=== PATIENT | female | born 1990 | race Two or more races ===

== ENCOUNTER 2017-01-03 10:00 | Outpatient (CLI) | payer OTHER ==
[2017-01-03 11:02] LABS: BILIRUBIN,URINE NEGATIVE (NEGATIVE)
[2017-01-03 11:05] LABS: UA CHARGE (STRIP ONLY) YES; UR CULTURE IF IND NOT INDICATED
[2017-01-03 11:47] VITALS: BP 114/71
--- NOTE | 2017-01-03 13:29 | Ultrasound Preliminary Report ---
Exam: US OB Limited IMPRESSION: 1. Single live intrauterine gestation in cephalic presentation with normal amniotic fluid volume. Est imated weight 2391 g 2. Cervix closed measuring 3.8 cm in length. Posterior placenta with no previa. 3. Examination otherwise as above. [facility] SITE ID: [id number]
--- NOTE | 2017-01-03 13:32 | Ultrasound Report ---
EXAM: THIRD TRIMESTER OBSTETRIC ULTRASOUND EXAM DATE: 01/03/2017 12:24 PM. CLINICAL HISTORY: Cervical length. COMPARISON: None. TECHNIQUE: Real-time scanning performed with static images. FINDINGS: Fetus: Single live intrauterine gestation. Presentation: Cephalic. Heart Rate: 132 beats per minute. Placenta: Posterior position. No placenta previa or abruption. Amniotic Fluid Index (DANNIELLE): 14.7 cm (normal 8-25). Biometry: Bi-parietal diameter (BPD): 8.5 cm = 34 weeks 3 days. Head circumference (HC): 32.9 cm = 37 weeks 2 days. Abdominal circumference (AC): 30.5 cm = 34 weeks 3 days. Femur length (FL): 6.4 cm = 32 weeks 6 days. Dates: Composite gestational age (this exam): 34 weeks 5 days (EDC 02/09/2017 ). Estimated weight: 2391 gm. Approximately 50th percentile for gestational age 33 weeks 3 days ba sed on dates submitted by patient. Anatomic Survey: No hydrocephalus. Anatomic survey not performed at this time. Maternal Structures: Cervix: Long and closed measuring 3.8 cm. Uterus/adnexa: Unremarkable. Kidneys: No hydronephrosis. Free fluid: None. IMPRESSION: 1. Single live intrauterine gestation in cephalic presentation with normal amniotic fluid volume. Est imated weight 2391 g 2. Cervix closed measuring 3.8 cm in length. Posterior placenta with no previa. 3. Examination otherwise as above. [facility] Referring Provider Line: [phone] SITE ID: [id number]
--- NOTE | 2017-01-03 18:13 | PROVIDER PROGRESS NOTE ---
Subjective - Prog Note Date Prog Note Date: 01/03/17 - Subjective Subjective: Patient report 3 H regular q 5min mild contractions wo suspicion of ROM. No fever, UTI sx or pelvic pressure. Objective - Vital Signs/Intake & Output Vital Signs: Vital Signs x48h Temp Pulse Resp BP Pulse Ox 01/03/17 11:34 78 16 114/71 98 01/03/17 10:20 98.6 F 80 16 129/76 99 - Lab Results Other Labs: Lab Results x24hrs 01/03/17 Range/Units 10:05 Urine Color YELLOW Urine Clarity CLEAR (CLEAR) Urine pH 7.0 (5.0-7.5) PH Ur Specific [place] <=1.005 (1.002-1.030) Urine Protein NEGATIVE (NEGATIVE) mg/dL Urine Glucose (UA) NEGATIVE (NEGATIVE) mg/dL Urine Ketones NEGATIVE (NEGATIVE) mg/dL Urine Occult Blood NEGATIVE (NEGATIVE) Urine Nitrite NEGATIVE (NEGATIVE) Urine Bilirubin NEGATIVE (NEGATIVE) Urine Urobilinogen 0.2 (NORMAL) (NORMAL) E.U./dL Ur Leukocyte Esterase NEGATIVE (NEGATIVE) Ur Microscopic Review NOT INDICATED Urine Culture Comments NOT INDICATED Physical Exam - Physical Exam General: positive: No acute distress, Alert HEENT: positive: Moist mucous membranes, Dentition normal Neck: positive: Supple w/out meningeal sx Abdomen: positive: Normal Bowel sounds Female : positive: Enlarged uterus (Accontactile, FH slightly larger than dates) Extremities: positive: No pedal edema Skin: positive: Warm and dry Neurologic: positive: Normal Speech Assessment/Plan - Assessment/Plan Assessment: Not in PTL and possibility of PTD remote w cervical length of 3.8 cm. FH & EFW slightly ahead of dates. Maybe GDM & need [facility] 3H GTT Plan: If 3H GTT not available this week we should repeat it. Appt on Jul
== END 2017-01-03 12:40 | disposition home or self-care (01) ==
LOC: WFO 10:00 → FBP 10:02 → WFO 12:30
PROVIDERS: ATTEND Obstetrics & Gynecology
DX: O47.03 False labor before 37 completed weeks of gestation, third trimester (principal); Z3A.33 33 weeks gestation of pregnancy
CPT/HCPCS: 76815; 81001; 81003; 87086; 99213

== ENCOUNTER 2017-01-24 08:00 | Outpatient (CLI) | payer OTHER | END 2017-01-24 08:01 | disposition home or self-care (01) | LOC: LAB.R 08:00 | PROVIDERS: ATTEND Registered Nurse | DX: Z36 Encounter for antenatal screening of mother (principal) | CPT/HCPCS: 87081 ==

== ENCOUNTER 2017-02-11 14:10 | Inpatient (IN) | payer OTHER ==
[2017-02-11 14:55] LABS: BASOPHILS # (AUTO) 0.1 10^3/uL (0.0-0.1); BASOPHILS % (AUTO) 0.7 %; EOSINOPHILS % (AUTO) 0.4 %; HCT - HEMATOCRIT 37.6 % (37.0-47.0); HGB - HEMOGLOBIN 12.3 g/dL (12.0-16.0); LYMPHOCYTES # (AUTO) 2.2 10^3/uL (1.5-3.5); MEAN CORPUSCULAR HGB CONC 32.8 g/dL (32.0-36.0); MEAN CORPUSCULAR VOLUME 88.4 fL (81.0-99.0); MEAN PLATELET VOLUME 8.8 fL (7.9-10.8); MONOCYTES # (AUTO) 0.9 10^3/uL (0.0-1.0); MONOCYTES % (AUTO) 7.9 %; NEUTROPHILS # (AUTO) 8.2 10^3/uL (1.5-6.6); RED BLOOD COUNT 4.26 10^6/uL (4.20-5.40); UNCORRECTED WHITE BLOOD COUNT 11.4 x10^3/uL; WHITE BLOOD COUNT 11.4 x10^3/uL (4.8-10.8)
[2017-02-11 17:22] LABS: BILIRUBIN,URINE NEGATIVE (NEGATIVE)
[2017-02-11 17:23] LABS: UA CHARGE (STRIP ONLY) YES; UR CULTURE IF IND NOT INDICATED
[2017-02-11] MEDS ORDERED: ONDANSETRON 4 MG/2 ML VIAL IVP PRN (18:34)
[2017-02-11] MEDS ORDERED: fentaNYL 100 MCG/2 ML VIAL IVP PRN (18:34)
[2017-02-11] MEDS ORDERED: SODIUM CHLORIDE FLUSH 0.9% 10 ML SYRINGE IVP PRN (18:34)
[2017-02-11] MEDS ORDERED: DINOPROSTONE 10 MG SUPP VG ONE (18:34)
[2017-02-11] MEDS ORDERED: OXYTOCIN/SODIUM CHLORIDE 250 ML IV ONE (18:34)
--- NOTE | 2017-02-11 18:44 | HISTORY & PHYSICAL EXAMINATION ---
Admit History - Instructions [place]/Slash: -Left hand click circles element as positive or present. -Right hand click slashes element as negative or not present. - Visit Reason Visit Reason: Other (gestational HTN w/ BPs consistently 140s/90s, no s/sx pre- eclampsia, elevated BP w/o significant proteinuria) - : 1 Parity: 0 Premature: 0 Ectopic: 0 : 0 Care: positive: [facility] (beginning @ 29w5d), [facility] Complications This : positive: induced HTN Smoking Status: Never smoker - Mother's Labs Mother's Blood Type: positive: B Mother's RH: positive: Positive GBS: positive: Group B Step Negative Rubella Status: positive: Immune (Medical History: unremarkable Surgical History : None Allergies: NKDA Medications: PNV to john [employer] DV, no tob/ ETOH/drugs. Active [employer].) Meds/Allgy - Home Medications Home Medications: Ambulatory Orders Medication Instructions Recorded Confirmed Pnv No.121/Iron/Folic Acid 1 each PO DAILY 02/11/17 02/11/17 [ Multivitamin Tablet] - Allergies Allergies/Adverse Reactions: Allergies Allergy/AdvReac Type Severity Reaction Status Date / Time No Known Drug Allergies Allergy Verified 02/11/17 18:48 Physical - Abdominal Exam Vital Signs: Temp Pulse Resp BP Pulse Ox 80 16 128/75 98 02/11/17 14:40 02/11/17 14:40 02/11/17 17:12 02/11/17 14:40 Contraction Frequency (min/apart): Occasional Contraction Intensity: positive: Mild Uterine Resting Tone: positive: Soft - Monitoring Heart Rate Baseline: 135 Strip Review: positive: Category I - Presentation Presentation: positive: Vertex - Vaginal Exam Membranes: positive: Membranes intact Dilation (in cm): 1 Effacement (%): 70 Station: positive: -1 Cervical Position: positive: Posterior (soft; bishops score: 7) - Speculum Exam Speculum Exam Performed: positive: No - Other Notes Labor Progress Note/Additional Text: is a 26 y/o @ 39 weeks' EGA by LMP, consistent w/ 1st trimester US. Her care has been remarkable for social stress r/t 's absence secondary to deployment. She has had no notable laboratory values and has had no concerning findings throughout the course of her care until she was seen in clinic today for concerns r/t possible labor. She was incidentally found to have elevated BP in clinic, with max finding of 144/92. She was sent to [facility] for evaluation of elevated BP & her Bp remained persistently 140s/90s. PET labs WNL except uric acid 9. No proteinuria on dip, TP/Cr pending. No neurologic findings. She is otoniel occasionally & has a Gonsalves's score of 7. She was hoping for minimal intervention & desires an unmedicated delivery. She is Rh +, rubella immune, GBS negative. ROS: GEN: Denies fever, +difficulty sleeping HEENT: Denies change in vision, POWER CHEST: Denies SOB/dyspnea HEART: denies CP, palpitations GI: denies n/v/d, some heartburn, relieved w/ ranitidine, no RUQ/epigastric pain : +urinary frequency & urgency, no dysuria OB: +FM, occ UC, not particularly painful, +mucoid bloody vaginal d/c, no LOF, no ligia bleeding, +FM MS: FROM t/o, +lumbar pain, no shoulder pain Neuro: No changes in vision, no dizziness, no weakness/numbness/tingling Psych: Feels anxious Skin: no pruritus, no lesions O: GEN: AAOx3, NAD WA gravid female, affect somewhat anxious, intermittently tearful HEENT: grossly normocephalic, atraumatic CHEST: Lungs b/l CTA t/o HEART: RRR nls1s2, no murmur ABD: Gravid, NT, + movement, lie longitudinal, presentation cephalic , EFW 7.5-8# EFM: BL 135bpm, + accels, no decels, mod variability TOCO: intermittent occasional uterine contractions SVE: /-1 soft, posterior, IBOW EXTREMITIES: FROM t/o, NT, trace b/l pedal edema SKIN: C/D/I, striae gravidarum, no other lesions NEURO: No focal deficit, LE DTRs +2, no clonus PSYCH: Intermittently tearful, anxious A: 26 y/o @ 39 weeks' gestation, GHTN w/o s/sx PET, GBS negative, FHTs cat I, Bishops score: 7, adequate pain control w/o analgesia/anesthesia, good social support from partner & family Plan for Labor - Plan For Labor Plan for Labor: P: 1. reviewed management options & rationale for IOL @ 39 weeks w/ persistently elevated BP, even in absence of evidence of pre-eclampsia; pt & partner elect preinduction cervical ripening this evening w/ IOL to commence tomorrow, reviewed all options for preinduction cervical ripening & pt elects dinoprostone insert overnight, PARQ held 2. Admit to obs for preinduction cervical ripening w/ anticipation of transfer to inpt status w/ onset of active labor or ROM 3. Reviewed physiology of labor process, induction, expectations, risks/benefits 4. Ongoing careful monitoring of BP w/ initiation of antihypertensive therapy for severe-range BPs 5. Reviewed PET warning s/sx & pathophysiology of PET as well as unpredictable nature of the disease, repeat labs in am 6. Regular diet 7. Sleep aid PRN overnight 8. Plan to place dinoprostone insert & reassess x12 hours, earlier PRN 9. Reviewed plan of care w/ pt, partner & RN @ bedside; all in agreement, without concerns. Reviewed clinical scenario w/ Dr. Lani DO, who concurs w/ the management plan 10. Will make efforts to preserve 's desires for limited intervention as medically feasible--reviewed w/ pt & her partner
[2017-02-11 18:54] LABS: BASOPHILS # (AUTO) 0.1 10^3/uL (0.0-0.1); BASOPHILS % (AUTO) 0.8 %; EOSINOPHILS # (AUTO) 0.1 10^3/uL (0.0-0.7); EOSINOPHILS % (AUTO) 0.5 %; HCT - HEMATOCRIT 38.6 % (37.0-47.0); HGB - HEMOGLOBIN 13.1 g/dL (12.0-16.0); LYMPHOCYTES # (AUTO) 3.1 10^3/uL (1.5-3.5); LYMPHOCYTES % (AUTO) 24.9 %; MEAN CORPUSCULAR HEMOGLOBIN 30.3 pg (27.0-31.0); MEAN CORPUSCULAR VOLUME 88.9 fL (81.0-99.0); MEAN PLATELET VOLUME 8.8 fL (7.9-10.8); MONOCYTES # (AUTO) 1.1 10^3/uL (0.0-1.0); MONOCYTES % (AUTO) 8.8 %; NEUTROPHILS # (AUTO) 8.2 10^3/uL (1.5-6.6); RED BLOOD COUNT 4.34 10^6/uL (4.20-5.40); UNCORRECTED WHITE BLOOD COUNT 12.6 x10^3/uL; WHITE BLOOD COUNT 12.6 x10^3/uL (4.8-10.8)
[2017-02-11] MEDS: SODIUM CHLORIDE FLUSH 0.9% 10 ML SYRINGE IVP SCH (22:00)
[2017-02-11] MEDS ORDERED: FLUCONAZOLE 100 MG TABLET PO STA (22:42)
[2017-02-11] MEDS ORDERED: hydrOXYzine PAMOATE 25 MG CAPSULE PO PRN (22:43)
[2017-02-12] MEDS: SODIUM CHLORIDE FLUSH 0.9% 10 ML SYRINGE IVP SCH ×2 (07:25→21:27)
[2017-02-12] MEDS ORDERED: MAGNESIUM HYDROXIDE 2,400 MG/30 ML UDC PO PRN (11:21)
--- NOTE | 2017-02-12 11:24 | PROVIDER PROGRESS NOTE ---
Labor Progress Note - Uterine Monitoring Uterine Monitoring Mode: positive: External toco Contraction Frequency (min/apart): 5 Contraction Intensity: positive: Mild Uterine Resting Tone: positive: Soft - Monitoring Monitor Mode: positive: External ultrasound Heart Rate Baseline: 140 Heart Rate Variability: positive: Moderate (6-25 bmp) Accelerations: positive: Present, 15x15 Decelerations: positive: None Strip Review: positive: Category I - Vaginal Exam Dilation (in cm): 2 Effacement (%): 80 Station: -1 Cervical Position: Midposition - Labor Progress Note Labor Progress Note/Additional Text: S: was able to sleep some last night. She is very nervous about the next phase of her induction secondary to her discomfort w/ SVE. Her partner, Luis F , is present at the bedside & is very involved & supportive. Her mother is resting in the room. She had been hoping to have an unmedicated delivery, but she is having second thoughts because she has fear regarding the extent of the pain. She is noticing tightening w/ her contractions now & has occasional cramping but she does not have any profound discomfort. O: VS: T: 97.9, HR 80 RR17 BP138/79 EFM BL 140bpm, +accels, no decels, mod variability TOCO: UCs q5 min x 70-90 seconds, palpably mild SVE: 2/80/-1, soft, midposition, Gonsalves's 9; large amount of stool palpable in rectum--pt reports no BM x3 days A: 26 y/o @ 39w1d w/ new-onset gestational HTN, no s/sx pre-eclampsia Normotensive @ present w/o severe-range BPs GBS negative, IBOW Adequate pain control w/o analgesia/anesthesia Some cervical change s/p cervical ripening x12 hours w/ PGE2 insert P: 1. Reviewed management options, to include further cervical ripening w/ PGE1 buccally vs. initiation of Pitocin infusion, reviewed risks/benefits, pt elects a buccal dose of misoprostol x1 @ this time w/ re-evaluation x4 hours, earlier PRN 2. Reviewed constipation & large amount of stool in rectum as well as resultant discomfort; recommend Milk of Magnesia @ this time to facilitate BM 3. Ongoing CEFM & close BP monitoring w/ initiation of antihypertensive therapy for severe-range BPs 4. Reviewed optimal maternal positioning in early 1st stage labor; reviewed labor support options; reviewed pain management techniques & options @ length 5. Reassess cervical status x4 hours s/p misoprostol administration, earlier PRN 6. Reviewed plan of care w/ pt, partner & RN @ bedside; all in agreement, without concerns.
[2017-02-12] MEDS: miSOPROStol 100 MCG TABLET BC SCH ×2 (11:40→21:47)
[2017-02-12] MEDS: ACETAMINOPHEN 325 MG TABLET PO PRN (11:40)
--- NOTE | 2017-02-12 16:21 | PROVIDER PROGRESS NOTE ---
Labor Progress Note - Uterine Monitoring Contraction Frequency (min/apart): 1-6 Contraction Intensity: positive: Mild Uterine Resting Tone: positive: Soft - Monitoring Monitor Mode: positive: External ultrasound Heart Rate Baseline: 145 Heart Rate Variability: positive: Moderate (6-25 bmp) Accelerations: positive: Present, 15x15 Decelerations: positive: None Strip Review: positive: Category I - Vaginal Exam Dilation (in cm): 3 Effacement (%): 80 Station: -1 Cervical Position: Anterior (soft) - Labor Progress Note Labor Progress Note/Additional Text: S: reports increased intensity of uterine contractions, considerable rectal pressure & cramping w/ the contractions as well as between. She has noticed some increased bloody show when she has used the restroom. She has been ambulating in the hallway & utilizing her ball. She was able to eat lunch & has been walking in the hallways with Bruce, who is very involved & supportive. O: VS: T 97.9, HR 81, RR 17 BP 125/84 EFM: BL 145bpm, +accels, no decels, mod variability TOCO: UCs q1-6 min x60sec, palp mild SVE: 3/80/-1/anterior/soft, Gonsalves's score = 11; BBOW w/ uterine contractions; significant palpable stool in pt's rectum A: 26 y/o @ 39w1d, IOL for gestational HTN w/o s/sx PET Normotensive @ present & no severe-range BPs S/P effective prostaglandin cervical ripening w/ overnight PGE2 & 1 dose PGE1 GBS negative w/ IBOW Adequate pain control w/o analgesia/anesthesia Constipation, not yet responsive to single dose oral MOM P: 1. Begin Pitocin infusion & titrate per protocol to adequate contraction pattern per tocometry 2. Fleet's mineral oil enema x1 3. Reviewed optimal maternal positioning & activity in early 1st stage labor 4. Reviewed labor physiology & anticipatory guidance for progress 5. Reviewed pain management options, analgesia/anesthesia PRN per pt request 6. Ongoing careful monitoring of BP w/ initiation of antihypertensive therapy for severe-range BPs 7. Reassess cervical status x4 hours, earlier PRN 8. Reviewed plan of care w/ pt, partner & RN @ bedside; all in agreement, without concerns.
[2017-02-12] MEDS ORDERED: OXYTOCIN/SODIUM CHLORIDE 250 ML IV SCH ×2 (17:00)
[2017-02-12] MEDS ORDERED: MINERAL OIL ENEMA 133 ML BOTTLE RC ONE (17:00)
--- NOTE | 2017-02-13 00:28 | PROVIDER PROGRESS NOTE ---
Labor Progress Note - Uterine Monitoring Contraction Frequency (min/apart): 3-5 Contraction Intensity: positive: Mild to moderate Uterine Resting Tone: positive: Soft - Monitoring Monitor Mode: positive: External ultrasound Heart Rate Baseline: 130 Heart Rate Variability: positive: Moderate (6-25 bmp) Accelerations: positive: Present, 15x15 Decelerations: positive: None Strip Review: positive: Category I - Vaginal Exam Dilation (in cm): 3 Effacement (%): 80 Station: -1 Cervical Position: Anterior - Labor Progress Note Labor Progress Note/Additional Text: S: is feeling tired, reports her contractions are quite uncomfortable when she has them & has noticed bloody show when using the restroom. She remains reticent to initiate Pitocin infusion. Luis F is at the bedside & is very involved & supportive. is breathing through her contractions & would like to try to rest if she is able. She does not desire analgesia/anesthesia @ this time. O: VS: T97.9 HR 83 RR 17 BP131/84 EFM BL 130bpm, + accels, no decels, mod variability TOCO: UCs q3-5 min x70-90 sec, palp moderate SVE: 3/80/-1 A: 26 y/o @ 39w1d EGA, IOL for GHTN, no s/sx PET No further cervical change s/p additional dose of misoprostol per pt request GBS negative w/ IBOW Adequate pain control w/o analgesia/anesthesia No severe range BPs, normotensive FHTs cat I P: 1. Reviewed clinical scenario & implications 2. Recommend beginning Pitocin infusion 4 hours s/p misoprostol dose & titrating per protocol to adequate labor pattern by tocometry, pt in agreement 3. Recommend resting as able between uterine contractions 4. Reviewed pain management options 5. Ongoing close monitoring of BP w/ antihypertensive intervention where appropriate 6. Reviewed plan of care w/ pt, partner & RN @ bedside; all in agreement, without concerns
--- NOTE | 2017-02-13 00:35 | PROVIDER PROGRESS NOTE ---
Labor Progress Note - Uterine Monitoring Uterine Monitoring Mode: positive: Palpation Contraction Frequency (min/apart): 5 Contraction Intensity: positive: Mild to moderate - Monitoring Monitor Mode: positive: Doppler/auscultation Heart Rate Baseline: 130 - Labor Progress Note Labor Progress Note/Additional Text: S: is reticent to begin Pitocin infusion. She is hesitant because of everything that she has read about Pitocin & consequent interventions. She and her are concerned about the possible sequelae they may encounter if Pitocin is begun. She is having contractions & does not understand why she needs additional intervention for her IOL. She was able to have a copious bowel movement s/p enema. O: VS: T 97.4, HR 80 RR 18, BP 128/74 [place]: 130s, no decreases, no increases Palpable UCs q5 min, mild SVE deferred per pt request A: 26 y/o @ 39w1d; IOL for GHTN, no s/sx PET FHTs reassuring by doppler Ongoing uterine contractions, q 5 min, s/p misoprostol administration Adequate pain control w/o analgesia/anesthesia GBS negative, IBOW P: 1. Extensive review of IOL & indications as well as mechanism of IOL 2. Extensive review of Pitocin & endogenous oxytocin, mechanism of action, risks /benefits 3. Pt desires repeat misoprostol dosing to see if she can progress further w/ that, reluctant to begin Pitocin, despite additional education 4. Analgesia/anesthesia discussed; pt does not desire @ this time; she would like to shower & then receive a second dose of misoprostol 5. Reviewed plan of care w/ pt, partner, RN @ bedside & Dr. Lani DO, back-up [employer] CLAIMS ANALYST--all in agreement, without concerns
--- NOTE | 2017-02-13 00:54 | PROVIDER PROGRESS NOTE ---
Labor Progress Note - Uterine Monitoring Uterine Monitoring Mode: positive: External toco Contraction Frequency (min/apart): 3-5 Contraction Intensity: positive: Mild to moderate Uterine Resting Tone: positive: Soft - Monitoring Monitor Mode: positive: External ultrasound Heart Rate Baseline: 135 Heart Rate Variability: positive: Moderate (6-25 bmp) Accelerations: positive: Present, 15x15 Decelerations: positive: None Strip Review: positive: Category I - Labor Progress Note Labor Progress Note/Additional Text: Per RN, SROM for moderate amt CAF Pt does not presently desire analgesia/anesthesia Expectant management w/ initiation of Pitocin infusion @ 4 hours s/p last misoprostol administration & titration to adequate labor pattern by tocometry GBS neg
[2017-02-13] MEDS: LACTATED RINGERS 1,000 ML IV SCH ×2 (08:26→18:24)
[2017-02-13] MEDS: SODIUM CHLORIDE FLUSH 0.9% 10 ML SYRINGE IVP SCH ×2 (08:26→14:18)
--- NOTE | 2017-02-13 08:44 | PROVIDER PROGRESS NOTE ---
Labor Progress Note - Uterine Monitoring Uterine Monitoring Mode: positive: External toco Contraction Frequency (min/apart): 4-8 Contraction Intensity: positive: Moderate Uterine Resting Tone: positive: Soft - Monitoring Monitor Mode: positive: External ultrasound Heart Rate Baseline: 130 Heart Rate Variability: positive: Moderate (6-25 bmp) Accelerations: positive: Present, 15x15 Decelerations: positive: Early Strip Review: positive: Category I - Vaginal Exam Dilation (in cm): 4.5 Effacement (%): 90 Station: -1 Cervical Position: Anterior - Labor Progress Note Labor Progress Note/Additional Text: S: reports progressive intensity of uterine contractions. She has been leaking CAF w/ some occasional pink d/c since SROM. She reports more cramping & increased pelvic pressure w/ the contractions. She has been trying to avoid the use of Pitocin, largely out of fear r/t the degree of discomfort she will experience. She is extremely well-supported by her loving family & . She is potentially interested in hydrotherapy but declines analgesia/ anesthesia. She is hoping to maintain her original intent for an unmedicated delivery. She has persistently declined the initiation of Pitocin infusion in the hopes that she will spontaneously progress. O: VS: T 97.9, HR 99, RR 17, BP 138/89 EFM BL 130bpm, +accels, occ early decels, mod variability TOCO: UCs q3-8 min [id number], palp moderate SVE: 4-5/90/-1/anterior/soft Extremities: +3 pitting edema to the knees b/l, DTRs +2, no clonus A: 26 y/o @ 39w2d, IOL for GHTN w/o s/sx PET Normotensive @ present, no severe-range BPs SROM for CAF @ 0145, for a total ruptured duration of nearly 7 hours, afebrile s/p effective prostaglandin cervical ripening w/ some spontaneous contractions, very slow cervical change likely secondary to inadequate contraction pattern GBS negative FHTs cat I Adequate pain control w/o analgesia/anesthesia P: 1. Reviewed clinical scenario @ length & again reviewed use of Pitocin & indications as well as prevention of untoward outcomes by achieving adequate labor & progressive cervical change 2. Extensive review of pharmacology as pertains to synthetic oxytocin 3. Extensive review of labor physiology & expectations for active labor, transition, second stage 4. Extensive review of pain management options, pharmacologic & non- pharmacologic, & available options for coping w/ labor discomfort---pt desires hydrotherapy @ present & will eat a light breakfast & get into the jacuzzi for initiation of Pitocin 5. Initiate Pitocin infusion & titrate per protocol to adequate contraction pattern by tocometry 6. Reassess cervical status 4 hours s/p achievement of adequate contraction pattern by tocometry, earlier PRN 7. Extensive review of plan of care w/ pt, pt's partner & RN @ bedside; all in agreement, without concerns
--- NOTE | 2017-02-13 14:25 | PROVIDER PROGRESS NOTE ---
Labor Progress Note - Uterine Monitoring Uterine Monitoring Mode: positive: External toco Contraction Frequency (min/apart): 4-5 Contraction Intensity: positive: Moderate to strong Uterine Resting Tone: positive: Soft - Monitoring Monitor Mode: positive: External ultrasound Heart Rate Baseline: 130 Heart Rate Variability: positive: Moderate (6-25 bmp) Accelerations: positive: Present, 15x15 Decelerations: positive: Early Strip Review: positive: Category I - Vaginal Exam Dilation (in cm): 6 Effacement (%): 90 Station: 0 Cervical Position: Anterior - Labor Progress Note Labor Progress Note/Additional Text: S: reports increased intensity of uterine contractions, breathing through contractions, rocking & swaying w/ partner support, squatting down w/ uterine contractions, does not desire analgesia/anesthesia @ this time, declines use of jacuzzi for pain management. O: VS: T 97.9, HR 101, RR 20, BP 138/87 EFM: BL 130bpm, + accels, occ early decels, mod variability TOCO: UCs q4-5 min x90-100 seconds, palp mod to strong on 4mU/min of Pitocin, titrated slowly over a period of 5 hours SVE: 6/90/0, anterior A: 26 y/o @ 39w2d IOL for GHTN, no s/sx PET Normotensive @ present w/o severe-range BPs Progressive cervical change w/ Pitocin infusion s/p effective preinduction prostaglandin cervical ripening SROM x13 hours; CAF; afebrile GBS negative Adequate pain control w/o analgesia/anesthesia FHTs cat I P: 1. Reviewed clinical scenario & implications 2. Reviewed labor support w/ partner & family 3. Reviewed optimal maternal positioning 4. Reviewed pharmacologic & non-pharmacologic pain management measures 5. Continue to titrate Pitocin infusion per protocol to maintain adequate labor pattern by tocometry 6. Reassess cervical status x4 hours, earlier PRN 7. Reviewed plan of care w/ pt, partner & RN @ bedside; all in agreement, without concerns.
--- NOTE | 2017-02-13 17:32 | PROVIDER PROGRESS NOTE ---
Labor Progress Note - Uterine Monitoring Uterine Monitoring Mode: positive: External toco Contraction Frequency (min/apart): 4-5 Contraction Intensity: positive: Strong Uterine Resting Tone: positive: Soft - Monitoring Monitor Mode: positive: External ultrasound Heart Rate Baseline: 135 Heart Rate Variability: positive: Moderate (6-25 bmp) Accelerations: positive: Present, 15x15 Decelerations: positive: Early Strip Review: positive: Category I - Vaginal Exam Dilation (in cm): 8 Effacement (%): 100 Cervical Position: Anterior - Labor Progress Note Labor Progress Note/Additional Text: S: has utilized the jacuzzi w/ some relief, feels the contractions are incredibly intense, reports lumbar back pain, increased pressure w/ uterine contractions, minimal between, able to change position easily, squatting w/ contractions, rocking & swaying w/ . Luis F is applying counterpressure & providing consistent excellent labor support. declines analgesia/anesthesia @ this time. O: VS: T 97.9 HR 92 RR 22 BP 108/83 EFM BL 130bpm, + accels, early decels, mod variability TOCO: UCs q4-5 min [id number], palp strong on 5mU/min of Pitocin SVE: 8/100/0, position LOP A: 26 y/o @39w2d IOL for GHTN, no s/sx PET, labile BP Normotensive @ present w/o severe-range BP SROM x16 hours, CAF, afebrile Progressive cervical change w/ Pitocin infusion slowly titrated over a period of ~8 hours, s/p effective prostaglandin preinduction cervical ripening GBS negative FHTs cat I Adequate pain control w/o analgesia/anesthesia; desires unmedicated delivery P: 1. Reviewed transition phase & 2nd stage labor physiology 2. Reviewed optimal maternal positioning, relief measures 3. Reviewed labor support w/ partner 4. Continue to titrate Pitocin per protocol to maintain adequate labor pattern by tocometry 5. Reassess cervical status x4 hours or w/ maternal urge to push 6. Reviewed plan of care w/ pt, partner, RN @ bedside; all in agreement, without concerns.
[2017-02-13] MEDS ORDERED: WITCH HAZEL/GLYCERIN 1 EACH MED..PAD TOP PRN (20:20)
[2017-02-13] MEDS ORDERED: HYDROCORTISONE 1% CREAM 28 GM TUBE PR PRN (20:20)
[2017-02-13] MEDS ORDERED: HYDROCORTISONE/PRAMOXINE 10 GM PR PRN (20:20)
[2017-02-13] MEDS ORDERED: OXYTOCIN/SODIUM CHLORIDE 250 ML IV ONE (20:20)
--- NOTE | 2017-02-13 20:46 | DELIVERY NOTE ---
Delivery Note - Labor Labor: positive: Induced by oxytocin - Infant Delivery Method Delivery Method: positive: Spontaneous vaginal delivery - Cervical Ripening Method Cervical Ripening Method: positive: Misoprostil - Presentation Presentation: positive: Vertex, SUSHIL - right occiput anterior - Nuchal Cord Nuchal Cord: positive: Present (x1), Reduced - Anesthetic Anesthetic Type: - Amniotic Fluid Description Amniotic Fluid Description: positive: Clear - Episiotomy Type Episiotomy Type: positive: None - Laceration Laceration: positive: None - Delivery Outcome Delivery Outcome: positive: Livebirth - [place]: positive: Placed in direct skin contact with mother, Stimulated, Warmed , [place] used sex: positive: Male - Cord Cord: positive: 3 vessels - Placenta Placenta: positive: Intact, Spontaneous - Estimated Blood Loss Estimated Blood Loss (in cc): 100 - Post Delivery Events Post Delivery Events: positive: No post delivery events - Delivery Comments (Free Text/Narrative) Delivery Comments (Free Text/Narrative): Mary Wood is a 26 y/o [id number] who received care at [facility] beginning in the first trimester. She transferred care to [facility] @ 29 weeks' gestation to have [facility] care. She had an uncomplicated course until 39 weeks' gestation, when she was found to have elevated BP. She was induced as a result for gestational HTN w/o s/sx PET. She underwent effective preinduction cervical ripening w/ cervidil insert x1 & 2 doses buccal misoprostol. She then had SROM for CAF & received Pitocin infusion for IOL. She entered active labor 02/13/2017 @ 1000 & progressed steadily w/ titration of Pitocin infusion to an anterior lip @ 1850. She utilized hydrotherapy, position changes, breathing, music, directed relaxation, counterpressure, massage, and ambulation for pain management. She received no analgesia/anesthesia. Her anterior lip was easily reduced over 3 pushes & she was found to be complete @ 1858, for a total first stage of 8hours, 58 minutes. FHTs were electronically monitored t/o the first stage & were consistently category I. She pushed w/ spontaneous urge in various positions to achieve of viable male in SUSHIL position over an intact perineum @ 1957, for a total 2nd stage duration of 59 minutes. FHTs electronically monitored t/o the 2nd stage & were category I-II t/o. Total ruptured duration 18hrs, 17 minutes, afebrile t/o. Loose nuchal cord x1 easily reduced prior to delivery of shoulders & body. vigorous w/ spontaneous, lusty cry. Placed to maternal abdomen for drying/stim. Delayed cord clamping until cessation of pulsation, then cord clamped x2 by CNM, cut by FOB. 3VC noted, cord blood obtained. Active management of the third stage w/ Pitocin in IVFs. Placenta delivered spontaneously, Bennie, @ 2007, for a total 3rd stage duration of 11 minutes. Fundus firm @ U. Vagina & perineum inspected & found to be intact. EBL 100mL. assisted w/ latch & actively suckling w/in 20 minutes of delivery. Apgars 8 @ 1 min & 9 @ 5 min. Infant weight pending. Mother & infant stable.
[2017-02-13] MEDS: IBUPROFEN 800 MG TABLET PO SCH (21:15)
[2017-02-13] MEDS: DOCUSATE SODIUM 100 MG CAPSULE PO SCH (21:15)
[2017-02-14] MEDS: ACETAMINOPHEN 325 MG TABLET PO PRN ×3 (01:04→14:48)
[2017-02-14] MEDS: IBUPROFEN 800 MG TABLET PO SCH ×4 (02:28→21:16)
[2017-02-14] MEDS: DOCUSATE SODIUM 100 MG CAPSULE PO SCH ×2 (09:12→21:16)
[2017-02-14] MEDS: PRENATAL VITAMIN TABLET PO SCH (09:18)
--- NOTE | 2017-02-14 13:18 | PROVIDER PROGRESS NOTE ---
Subjective - Prog Note Date Prog Note Date: 02/14/17 Prog Note Time: 10:00 - Subjective Pt reports feeling: Improved Subjective: is feeling well. She is tired. She was able to rest overnight. She reports minimal discomfort, occasional cramping, no perineal pain. She is well w/o complaints. No nipple pain. She is tolerating po intake ; she has not yet had a BM, but she is passing flatus. She is very pleased w/ her delivery experience. She is not planning another @ this time. She will have 12 weeks' pp leave. Her partner will be home w/ her until 03/08, then will deploy again. Objective - Vital Signs/Intake & Output Reviewed Vital Signs: Yes Vital Signs: Vital Signs x48h Temp Pulse Resp BP Pulse Ox 02/14/17 11:59 36.6 C 76 16 124/74 100 02/14/17 08:30 36.6 C 82 16 108/63 99 Intake & Output: Intake & Output 02/11/17 02/12/17 02/13/17 02/14/17 23:59 23:59 23:59 23:59 Intake Total 2043.334 Output Total 800 Balance 1243.334 - Objective General Appearance: positive: No acute distress, Alert, Mild distress Eyes Bilateral: positive: Normal inspection, EOMI ENT: positive: ENT inspection nml Respiratory: positive: Chest non-tender, No respiratory distress, Breath sounds nml Cardiovascular: positive: Regular rate & rhythm, No murmur Abdomen: positive: Non-tender, No distention, Other (FF U-1) Skin: positive: Color nml, No rash, Warm, Dry Extremities: positive: Non-tender, Full ROM, Nml appearance, Pedal edema (+3). negative: Calf tenderness, Ivy's sign/cords Neurologic/Psychiatric: positive: Oriented x3, CN's nml (2-12), Motor nml, Sensation nml, Mood/affect nml Comments/Other: Nipples b/l intact & everted; breasts b/l s, nt Perineum intact, no edema, no erythema, moderate lochia rubra. - Lab Results Fish Bones: 02/11/17 18:46 Other Labs: Lab Results x24hrs 02/11/17 Range/Units 21:55 HIV 1&2 Ag/Ab, 4th Gen NON-REACTIVE (NON-REACTIVE) Assessment/Plan - Problem List (1) (normal spontaneous vaginal delivery) Impression: Normal uterine involution Minimal lochia well Adequate pain control w/o opioid analgesia Progressive recovery PPD #1 s/p w/o laceration P: 1. continue routine pp care 2. support provided 3. reviewed anticipatory guidance/NB care 4. Anticipate D/C PPD#2
[2017-02-15] MEDS: IBUPROFEN 800 MG TABLET PO SCH ×2 (03:19→11:16)
--- NOTE | 2017-02-15 07:11 | Discharge Plan ---
Discharge Plan Disposition: 01 Home, Self Care Condition: Good Prescriptions: Ibuprofen [Motrin] 800 mg PO Q6H PRN #30 tablet PRN Reason: Pain Diet: Regular Activity Restrictions: pelvic rest x6 weeks Shower Restrictions: No (Do not immerse in tub of water. May use sitz bath as desired. ) Driving Restrictions: No Weight Bearing: Full Weight Instruction Topics: Breastfeed How To, Jaundice Signs Inf, Vaginal After Additional Instructions or Follow Up instructions: Follow up with Concha on 02/28/2017;schedule appointment with clinic: ; please call earlier if you would like assistance w/ No Smoking: If you smoke, Please STOP! Call for help. Follow-up with: Concha Morrison CNM, SOWMYA [Provider Admit Priv/Credential] -
--- NOTE | 2017-02-15 07:15 | DISCHARGE SUMMARY ---
"Discharge Summary Admit Date: 02/12/17 Discharge Date: 02/15/17 Discharging Provider: Concha Morrison CNM, ARNP Code Status: Attempt Resuscitation Condition at Discharge: Good Discharge Disposition: Home, Self Care Discharge Facility Name: - DIAGNOSES Admission Diagnoses: Gestational hypertension 39 weeks' gestation [place] Discharge Diagnoses with Status of Each Condition: w/o laceration - HPI History of Present Illness: was admitted w/ elevated blood pressure for pre-induction cervical ripening. She received 1 dose of cervidil vaginally followed by 2 doses of misoprostol buccally, then experienced SROM for CAF & received Pitocin infusion for induction of labor. She progress steadily to complete dilatation & had an unmedicated over an intact perineum w/o complications. She delivered a viable male w/ Apgars 8/9. - HOSPITAL COURSE Hospital Course: , her pain has been well-controlled w/ ibuprofen. She has been ambulating & voiding w/o incident. She is passing flatus & is tolerating po intake. She is well w/ excellent latch. She has exceptional social support from her family & her . She has had minimal vaginal bleeding & no perineal discomfort. She has had no severe-range blood pressures & has not required antihypertensive therapy. She is able to fully articulate pp warning s/sx, including pp depression s/sx, and aftercare instructions. She plans pp f/u w/ myself in 2 weeks & knows to call earlier as needed for additional support. - ALLERGIES Allergies/Adverse Reactions: Allergies Allergy/AdvReac Type Severity Reaction Status Date / Time No Known Drug Allergies Allergy Verified 02/11/17 18:48 - MEDICATIONS Home Medications: Ambulatory Orders Medication Instructions Recorded Confirmed Pnv No.121/Iron/Folic Acid 1 each PO DAILY 02/11/17 02/11/17 [ Multivitamin Tablet] Ibuprofen [Motrin] 800 mg PO Q6H PRN #30 tablet 02/15/17 Home Medications Other | Comments: May take OTC docusate sodium 100mg po BID PRN - PHYSICAL EXAM AT DISCHARGE General Appearance: positive: No acute distress, Alert Eyes Bilateral: positive: Normal inspection, EOMI ENT: positive: ENT inspection nml Respiratory: positive: Chest non-tender, No respiratory distress, Breath sounds nml Cardiovascular: positive: Regular rate & rhythm, No murmur, No gallop Abdomen: positive: Non-tender, No distention, Other (Fundus firm @ U-2) Skin: positive: Color nml, No rash, Warm, Dry Extremities: positive: Non-tender, Full ROM, Nml appearance, Pedal edema (+1 b/l ). negative: Calf tenderness, Ivy's sign/cords Neurologic/Psychiatric: positive: Oriented x3, CN's nml (2-12), Motor nml, Sensation nml, Mood/affect nml Physical Exam Other/Comments: Breast b/l filling, NT; nipples b/l intact & everted, colostrum readily expressible Perineum w/ minimal lochia rubra; no edema, no ecchymosis, no erythema - LABS Result Diagrams: 02/11/17 18:46 - FOLLOW UP Follow Up: With Concha Morrison CNM, ARNP 02/28/2017; call to make appointment: "
[2017-02-15] MEDS: PRENATAL VITAMIN TABLET PO SCH ×2 (11:19→13:30)
[2017-02-15] MEDS: DOCUSATE SODIUM 100 MG CAPSULE PO SCH (11:19)
[2017-02-15 14:55] VITALS: BP 130/81
--- NOTE | 2017-02-15 16:37 | Labor Flowsheet ---
Labor Flowsheet Datetime Report Generated by CPN: 02/15/2017 16:37 Datetime: 02/15/2017 14:50 VITAL SIGNS NBP Sys/Ana Maria/Mean (mmHg): 130 : 81 : 93 Pulse: 89 SpO2 (%): 100 LaborFlag: Labor Datetime: 02/14/2017 04:07 Temperature (F): 97.9 Temperature (C): 36.6 Temperature (C): 36.6 Datetime: 02/13/2017 20:08 Stage 2 Comments: Placenta delivered inatact with a 3 vessel cord. Calcifications noted on placent a. Fundus firm at the umbilicus. Pitocin infusing. No lacerations noted. Datetime: 02/13/2017 19:57 Stage of : Labor UTERINE ACTIVITY Monitor Mode: External Quality: Strong Resting Tone (Palpate): Relaxed ASSESSMENT A Monitor Mode: External US FHR Baseline Rate : 145 Variability: Moderate 6-25 bpm Accelerations: None Decelerations: Variable; Prolonged Category: Category II STAGE 2 Pushing: Urge to Push; Involuntary Pushing Pushing Position: Pushing Squatting Datetime: 02/13/2017 19:50 Frequency (min): 1-2 Duration (sec): 40-80 Actions for Decelerations: Oxygen Applied Pushing Progress: Descent with Pushing; Perineal Bulging; Rectal Bulging; Presenting Part Visible; with Pushing; Pushing Effectively with Contractions Datetime: 02/13/2017 19:40 Monitor Interventions for FHR: Ultrasound Adjusted I/O Interventions: Straight Cath (ml) @ (Annotations: no urine return) Datetime: 02/13/2017 19:20 Pattern: Normal: <= 5 Contractions in 10 Minutes Contraction Comments: pushing well Patient Position/Activity: Semi-Fowlers Comfort Measures: Coaching Datetime: 02/13/2017 19:11 FHR Baseline Changes: No Baseline Change Comments: scalp stim Oxygen Amount (LPM): 10 Oxygen Method: Non-Rebreather Datetime: 02/13/2017 18:54 VAGINAL EXAM Dilatation (cm): 10.0 Vaginal Bleeding: Normal Show Cervix, Consistency: Soft Cervix, Position: Anterior Datetime: 02/13/2017 18:45 Effacement (%): 100 Station: 0 Exam by: bryce du Vaginal Exam Comments: pt pushed thru anteror lip Datetime: 02/13/2017 18:26 MEDICATIONS Pitocin (milliunits): Increased to @ 7 Datetime: 02/13/2017 18:04 Patient Care Comments: squating at bedside Datetime: 02/13/2017 17:38 Respirations: 20 Datetime: 02/13/2017 16:55 Monitor Interventions for UA: [place] Adjusted Datetime: 02/13/2017 15:53 Communication Comments: morghan in room. jets in jacuzzi will not allow fetel tracing. ok per morgh an Datetime: 02/13/2017 15:49 COMMUNICATION Communication: Provider at Bedside Datetime: 02/13/2017 15:48 Pain Type: Pressure Pain Coping: Breathing Through Contractions; Declines Medication or Epidural Datetime: 02/13/2017 11:14 PAIN Pain Scale: 8 Datetime: 02/13/2017 08:56 Provider Reviewed Strip: Yes Notification Reason: Patient Request Datetime: 02/13/2017 08:32 Pain Assessment Comments: pt would like to talk with morghan again prior to starting pitocin PATIENT CARE IV/Blood Work: IV Infusing per Order Datetime: 02/13/2017 08:30 Pitocin Checklist: At Least 1 Acceleration of 15 bpm x 15 Seconds in 30 Minutes or Adequate Variabi lity; No More than 1 Late Deceleration Occurred in Past 30 Minutes; No More than 2 Variable Decelerat ions > 60 Seconds in Duration and decreasing >60 bpm in 30 minutes; No More than 5 Uterine Contractio ns in 10 Minutes for any 20 Minute Interval; Uterus Palpates Soft between Contractions Datetime: 02/13/2017 02:30 Pain Presence: Intermittent Pain Location: Abdomen Pain Relief Measures: Comfort Measures Datetime: 02/13/2017 00:32 Membrane Status: Ruptured Membranes Rupture Method: Spontaneous Amniotic Fluid Color: Clear Amniotic Fluid Amount: Moderate Amniotic Fluid Odor: Normal Datetime: 02/12/2017 17:00 ASSESSMENT B Monitor Mode: External US Datetime: 02/12/2017 11:30 Medication Comments: patient is constipated and given milk of magnesium po Datetime: 02/12/2017 11:00 TEACHING Instructional Method: Verbal; Patient Instructed; Family/Support Person Instructed; Verbalized Unde rstanding Plan of Care: Plan of Care Discussed; Induction Unit Routine: Medications Datetime: 02/12/2017 09:00 Labor/Induction: Labor Stages; Cervical Ripening; Induction Pain Management: IV Narcotics; Epidural; Comfort Measures Medications: IV Narcotics; Cervical Ripening Teaching Comments: patient very anxious and scared regarding the entire process and the pain. Worri ed about the vaginal exams. Reassured patient that the provider and staff will do everything possible to help her during the e xams. Datetime: 02/12/2017 03:32 Temperature Route: Oral Datetime: 02/11/2017 20:00 Hygiene: Shower
== END 2017-02-15 15:45 | disposition home or self-care (01) | DRG 775 ==
LOC: WFO 14:10 → FBP 14:11 → WFO 18:33 → FBP 18:34 → INTOOBSV 02-12 17:37 → OBSVTOIN 02-12 17:37 → INTOOBSV 02-13 00:32 → UNDODISIN 02-15 15:45
PROVIDERS: ADMIT Registered Nurse; ATTEND Registered Nurse
PROC: 10E0XZZ Delivery of Products of Conception, External Approach (ICD-10-PCS; principal; 2017-02-13)
DX: O13.4 Gestational [pregnancy-induced] hypertension without significant proteinuria, complicating childbirth (principal); O69.81X0 Labor and delivery complicated by cord around neck, without compression, not applicable or unspecified; Z3A.39 39 weeks gestation of pregnancy; Z37.0 Single live birth
CPT/HCPCS: 36415; 59025; 59200; 81001; 81003; 83615; 84156; 84450; 84550; 85025; 86780; 86850; 86900; 86901; 87086; 87389